=== PATIENT | male | born 1990 | race Caucasian/White ===

== ENCOUNTER 2016-05-31 17:52 | Emergency (ER) | payer MEDICAID, OTHER ==
[~2016-05-31] VITALS: Ht 172.7 cm; Wt 100.0 kg
[2016-05-31 17:53] VITALS: BP 137/82; PULSE 100; RESP 20; TEMP 98.4; O2SAT 97
--- NOTE | 2016-05-31 18:33 | PD ---
HPI Chief Complaint: Pain: Acute or Chronic Time Seen by Provider: 18:28 Travel History International Travel<30 days: No Contact w/Intl Traveler<30days: No Traveled to known affect area: No History of Present Illness HPI Patient is a 25-year-old male presenting to emergency for evaluation of bilateral foot pain. Patient states the left foot started prior to the right foot with a pulse hurt. Patient states it's painful upon taking his first episode in the morning. He reports the pain gets better as the day goes on as he walks and wears supportive shoes. He denies any injury or trauma, numbness, tingling, weakness. He denies any physical complaints otherwise, he denies any significant past medical history. [facility] Past Medical History Medical History: Denies Significant Hx Social History Alcohol Use: No Tobacco Use: No Substance Use: No Review of Systems Except as stated in HPI: all other systems reviewed are Neg Musculoskeletal: Positive: Myalgias, Pain Physical Exam Narrative GENERAL: Well-nourished, well-developed patient. SKIN: Warm and dry. HEAD: Normocephalic. EYES: No scleral icterus. No injection or drainage. NECK: Supple, trachea midline. No JVD or lymphadenopathy. CARDIOVASCULAR: Regular rate and rhythm without murmurs, gallops, or rubs. RESPIRATORY: Breath sounds equal bilaterally. No accessory muscle use. GASTROINTESTINAL: Abdomen soft, non-tender, nondistended. MUSCULOSKELETAL: No cyanosis, or edema. No obvious deformities noted to bilateral lower extremities. 5/5 muscle strength in bilateral lower extremities. Positive pedal pulses, brisk less than 3 second capillary refill. BACK: Nontender without obvious deformity. No CVA tenderness. Data Data Last Documented VS Vital Signs Date Time Temp Pulse Resp B/P Pulse Ox O2 Delivery O2 Flow Rate FiO2 05/31/16 17:53 98.4 100 20 137/82 97 Room Air MDM Medical Decision Making Medical Screen Exam Complete: Yes Emergency Medical Condition: Yes Interpretation(s) Vital Signs Date Time Temp Pulse Resp B/P Pulse Ox O2 Delivery O2 Flow Rate FiO2 05/31/16 17:53 98.4 100 20 137/82 97 Room Air Differential Diagnosis Strain versus sprain versus plantar fasciitis versus other Narrative Course Patient is a 25-year-old male presenting to emergency for evaluation of bilateral foot pain. Physical examination appears most consistent with plantar fasciitis. When discussed with patient he stated that he was told he had plantar fasciitis in the clinic and was advised to obtain water bottle or similar and put on the floor by his bed so in the morning he could roll his feet on it. He states that did not alleviate the pain. Patient was advised to follow-up with a sports marketing coordinator. He was encouraged to trial a softball her tennis ball instead. He was advised to trial taking an anti-inflammatory medication prior to bed. Patient verbalized understanding of instructions. Patient is stable for discharge. Diagnosis Primary Impression: Plantar fasciitis, bilateral Referrals: Quick Service Technician Patient Instructions: General Instructions, Plantar Fasciitis (ED), Plantar Fasciitis Exercises (GEN) Additional Instructions: Follow-up with sports marketing coordinator Follow-up with a primary care doctor Return to emergency department for any new or worsening symptoms Obtain a tennis ball her softball and use in the morning before you take your first steps Trial [id number] ibuprofen or acetaminophen as needed and as directed for pain Med/Other Pt SpecificInfo: No Change to Meds Disposition: 01 DISCHARGE HOME Condition: Stable Marina Delgado May 31, 2016 18:33
== END 2016-05-31 18:57 | disposition home or self-care (01) ==
LOC: NEPB 17:52
DX: M72.2 Plantar fascial fibromatosis (principal)
CPT/HCPCS: 99282

== ENCOUNTER 2016-11-28 09:18 | Emergency (ER) | payer MEDICAID, OTHER ==
[~2016-11-28] VITALS: Ht 180.3 cm; Wt 105.0 kg
[2016-11-28 09:20] VITALS: BP 136/82; PULSE 78; RESP 20; TEMP 97.8; O2SAT 100
--- NOTE | 2016-11-28 09:47 | PD ---
HPI Chief Complaint: Burn Time Seen by Provider: 09:47 Travel History International Travel<30 days: No Contact w/Intl Traveler<30days: No Traveled to known affect area: No History of Present Illness HPI 26-year-old male came to the emergency room with history of right hand burn injury that happened 2 days ago while he was working on an air conditioning unit. This was a work-related injury. It has blistered up at this point. Patient is having difficulty using his hand since its right between the index finger and the thumb and has a large blister. That's why he has come here. He was thinking a popping the blister himself at home. Patient is right hand dominant. [facility] Past Medical History Narrative Medical List of his past medical, surgical, social and family history is reviewed from the nursing note. Tetanus Vaccination: < 5 Years Social History Alcohol Use: No Tobacco Use: No Substance Use: No Allergies-Medications (Allergen,Severity, Reaction): Coded Allergies: No Known Allergies (Unverified , 11/28/16) Comments No known drug allergies. Narrative Medication Awaiting for the nurse to do the med reconciliation. Review of Systems Except as stated in HPI: all other systems reviewed are Neg Physical Exam Narrative GENERAL: Awake, alert, mild distress SKIN: Focused skin assessment warm/dry. Right hand second degree burn on the radial aspect of the index finger going all the way up to the ulnar aspect of the thumb. It's one large blister that's intact. It is about 7 cm in length. HEAD: Atraumatic. Normocephalic. EYES: Pupils equal and round. No scleral icterus. No injection or drainage. ENT: No nasal bleeding or discharge. Mucous membranes pink and moist. NECK: Trachea midline. No JVD. CARDIOVASCULAR: Regular rate and rhythm. No murmur appreciated. RESPIRATORY: No accessory muscle use. Clear to auscultation. Breath sounds equal bilaterally. GASTROINTESTINAL: Abdomen soft, non-tender, nondistended. Hepatic and splenic margins not palpable. MUSCULOSKELETAL: No obvious deformities. No clubbing. No cyanosis. No edema. NEUROLOGICAL: Awake and alert. No obvious cranial nerve deficits. Motor grossly within normal limits. Normal speech. PSYCHIATRIC: Appropriate mood and affect; insight and judgment normal. Data Data Last Documented VS Vital Signs Date Time Temp Pulse Resp B/P (MAP) Pulse Ox O2 Delivery O2 Flow Rate FiO2 11/28/16 10:48 11/28/16 09:20 97.8 78 20 100 Room Air MDM Medical Decision Making Medical Screen Exam Complete: Yes Emergency Medical Condition: Yes Medical Record Reviewed: Yes Differential Diagnosis Second degree burn second degree burn Narrative Course 10:08 AM the blister is intact and I have left that alone. I've asked the patient not to pop it either. I discussed with the burn center in [facility] and they can see him tomorrow at 10:30 AM. I have let the patient know about this. He will follow-up with them. I have made him aware that this is important since this is his hand and he should not take a chance with it. Procedures EKG Prior to Arrival: No Diagnosis Primary Impression: Second degree burn of hand Qualified Codes: T23.201A - Burn of second degree of right hand, unspecified site, initial encounter Departure Forms: Tests/Procedures, Work Release Enter return to work date: Dec 01, 2016 Additional Instructions: Please go to [facility] burn center. He again drive up to the [employer] parking and asked them and they will direct you. You have an appointment with them for 10:30 AM tomorrow morning (11/29/2016). Please do not miss the appointment since this is important for the burn surgeon to follow up with this injury for further healing and management. Disposition: 01 DISCHARGE HOME Condition: Stable Delaney Cummins MD Nov 28, 2016 09:47
== END 2016-11-28 10:49 | disposition home or self-care (01) ==
LOC: NEPD 09:18
DX: T23.201A Burn of second degree of right hand, unspecified site, initial encounter (principal); X08.8XXA Exposure to other specified smoke, fire and flames, initial encounter; Y93.89 Activity, other specified; Y99.0 Civilian activity done for income or pay
CPT/HCPCS: 99282